=== PATIENT | male | born 1995 | race Caucasian/White ===

== ENCOUNTER 2019-07-31 15:17 | Emergency (ER) | payer BC ==
[2019-07-31] MEDS ORDERED: Lidocaine 1% MPF ** 5 ML VIAL INJ ONE (15:34)
--- NOTE | 2019-07-31 16:38 | UC ---
Laceration HPI - HPI Summary HPI Summary: Any 3-year-old male comes in with a chief complaint laceration to his right hand. Spread arrival at work accidentally cut his right index finger and the knuckle of the Right third finger. Patient denies any weakness or numbness or loss of range of motion. Reports his last tetanus was one year ago. Bleeding stopped with direct pressure. - History Of Current Complaint Chief Complaint: UCLaceration Stated Complaint: RIGHT FINGER LACERATION Time Seen by Provider: 07/31/19 15:23 Pain Intensity: 2 - Allergies/Home Medications Allergies/Adverse Reactions: Allergies Allergy/AdvReac Type Severity Reaction Status Date / Time No Known Allergies Allergy Verified 07/31/19 15:28 Home Medications: Home Medications Cephalexin CAP* [Keflex CAP*] 500 mg PO TID #21 cap 07/31/19 [Rx] PMH/Surg Hx/FS Hx/Imm Hx Previously Healthy: Yes - Surgical History Surgical History: None - Family History Known Family History: Positive: Non-Contributory - Social History Alcohol Use: None Substance Use Type: None Smoking Status (MU): Never Smoked Tobacco - Immunization History Most Recent Tetanus Shot: 2018 Review of Systems All Other Systems Reviewed And Are Negative: Yes Constitutional: Positive: Negative Skin: Positive: Other - SEE HPI Eyes: Positive: Negative ENT: Positive: Negative Respiratory: Positive: Negative Motor: Positive: Negative Neurovascular: Positive: Negative Musculoskeletal: Positive: Other: - SEE HPI Neurological/Mental Status: Positive: Negative Psychological: Positive: Negative Is Patient Immunocompromised?: No Physical Exam Triage Information Reviewed: Yes Appearance: Well-Appearing, No Pain Distress, Well-Nourished Vital Signs: Initial Vital Signs Temp 98.1 F 07/31/19 15:23 Pulse 71 07/31/19 15:23 Resp 17 07/31/19 15:23 BP 109/57 07/31/19 15:23 Pulse Ox 100 07/31/19 15:23 Vital Signs Reviewed: Yes Eye Exam: Normal Eyes: Positive: Conjunctiva Clear Neck: Positive: Supple Respiratory: Positive: No respiratory distress Musculoskeletal: Positive: Strength Intact, ROM Intact Neurological: Positive: Alert Psychological: Positive: Age Appropriate Behavior Skin: Positive: Other - On the dorsum of the right index finger patient is a 1.5 cm laceration that is linear. On the dorsum of the base of the right finger the patient has a 2.5 cm laceration that is linear. Both are subcutaneous. I can see the tendon over the third MCP and it appears to have a partial laceration. Whole hand in both fingers have full range of motion full- strength normal sensation normal capillary refill. Laceration Repair - Laceration Repair 1 Procedure Summary: Dorsum of right index finger Description: Linear Laceration Size After Repair: Length (cm) - 1.5 cm Modified For Repair: No Type Injection: Local Anesthesia Used: 1.0% Lido Irrigation With Pressure Irrigation Device: Yes Closure Material: Sutures - Total of 7, 5-0 Ethilon interrupted sutures were used. Closure Method: Single Layer Suture Of: Skin Suture Type: Other - Ethilon 2 Procedure Summary: On the dorsum at the base of the right third finger over the MCP Description: Linear Laceration Size After Repair: Length (cm) - 2.5 cm Modified For Repair: No Type Injection: Local Anesthesia Used: 1.0% Lido Irrigation With Pressure Irrigation Device: Yes Closure Material: Sutures - A total of 10 Ethilon 5-0 simple interrupted Closure Method: Single Layer Suture Of: Skin Suture Type: Other - Ethilon Laceration Course/Dx - Course/Dx Course Of Treatment: It appears that the patient has a partial tendon injury on the dorsum of the right third finger. Still has full range of motion full-strength normal sensation normal capillary refill. Patient started on Keflex prophylactically. He is up-to-date on his tetanus. He'll minimize use of that hand and follow- up with the orthopedic hand specialist. Needs to get reevaluated sooner if worse or any questions or concerns. - Diagnosis Provider Diagnosis: Laceration of right index finger, Laceration of right middle finger Discharge ED - Sign-Out/Discharge Documenting (check all that apply): Patient Departure All imaging exams completed and their final reports reviewed: No Studies - Discharge Plan Condition: Stable Disposition: HOME Prescriptions: Cephalexin CAP* [Keflex CAP*] 500 mg PO TID #21 cap Patient Education Materials: Finger Laceration (ED), Tendon Laceration (ED) Forms: *Work Release Referrals: [facility] [place] PHYSICIAN REFERRAL [Outside] Irene Jean MD [Medical Doctor] - Heri Mcginnis MD [Medical Doctor] - Additional Instructions: FOLLOW UP WITH THE ORTHOPEDIC HAND SPECIALIST FOR FURTHER EVALUATION AND CARE OF YOUR HAND LACERATION AND TENDON INJURY. GET REEVALUATED IF NOT IMPROVING OR WORSE; ANY SIGNS OF INFECTION OR ANY QUESTIONS OR CONCERNS. - Billing Disposition and Condition Condition: STABLE Disposition: Home
[2019-07-31 17:08] VITALS: BP 109/57
== END 2019-07-31 17:13 | disposition home or self-care (01) ==
LOC: EDBD → UCCORT 15:17
DX: S61.210A Laceration without foreign body of right index finger without damage to nail, initial encounter (principal); S61.212A Laceration without foreign body of right middle finger without damage to nail, initial encounter; W26.0XXA Contact with knife, initial encounter; Y93.89 Activity, other specified; Y92.9 Unspecified place or not applicable; Y99.0 Civilian activity done for income or pay
CPT/HCPCS: 12002; 99202; G0463